=== PATIENT | male | born 1980 | race Caucasian/White ===

== ENCOUNTER 2018-04-26 11:01 | Emergency (ER) | payer BC ==
[~2018-04-26] VITALS: Ht 167.6 cm; Wt 104.3 kg
[~2018-04-26 11:01] MED LIST: ADVIL200 MG PO
[2018-04-26] MEDS ORDERED: LOSARTAN-HCTZ1 EACH PO (11:10)
== END 2018-04-26 11:15 | disposition home or self-care (01) ==
LOC: ED 11:01
DX: M54.6 Pain in thoracic spine (principal)